=== PATIENT | female | born 1945 | race American Indian/Alaskan Native ===

== ENCOUNTER 2018-01-27 09:47 | Outpatient (CLI) | payer MEDICARE ==
[2018-01-27 10:45] LABS: Blood Urea Nitrogen 16 mg/dL (7-17)
--- NOTE | 2018-01-27 11:51 | Cat Scan Report ---
CT ABDOMEN PELVIS WITH CONTRAST: HISTORY: Varicose veins. COMPARISON: None. TECHNIQUE: Helical CT in 1.25mm intervals following IV contrast. Sagittal and coronal reconstructions. FINDINGS: Lung bases: A small hiatal hernia is identified. Mild cardiomegaly is suspected. The lung bases are adequately aerated. Liver: Normal. Biliary system: Normal. Pancreas: Normal. Spleen: Normal. Kidneys/ureters/bladder: There are a few scattered simple cysts measuring up to 1 cm. No evidence for renal mass or nephrolithiasis. The ureters and bladder are unremarkable. Adrenal glands: Normal. Aorta: Minimal atherosclerotic calcifications distally. No aneurysm or dissection. No compression of the iliac veins to suggest May Thurner syndrome. Intestines: Extensive diverticulosis of the distal colon is identified. No evidence for obstruction or inflammation. Appendix: Normal. Pelvic viscera: Hysterectomy. Ascites: None. Adenopathy: None. Musculoskeletal: Osteopenia is evident. There is moderate dextrocurvature to the thoracolumbar spine. Moderate degenerative changes in the lower lumbar spine. No fracture or suspicious bony lesion. IMPRESSION: No acute process is identified in the abdomen or pelvis. Mild cardiomegaly. Small hiatal hernia. Scattered simple renal cysts. Diverticulosis of the colon. Hysterectomy. No venous compression is detected.
== END 2018-01-27 09:48 | disposition home or self-care (01) ==
LOC: CT 09:47
PROVIDERS: ATTEND Radiology Diagnostic Radiology
DX: K57.90 Diverticulosis of intestine, part unspecified, without perforation or abscess without bleeding (principal); I83.212 Varicose veins of right lower extremity with both ulcer of calf and inflammation; I87.1 Compression of vein; I51.7 Cardiomegaly; N28.1 Cyst of kidney, acquired; Z90.710 Acquired absence of both cervix and uterus
CPT/HCPCS: 36415; 74177; 82565; 84520; Q9967